=== PATIENT | male | born 1975 | race Two or more races ===

== ENCOUNTER 2017-11-28 23:03 | Emergency (ER) | payer BC, SELFPAY ==
[~2017-11-28] VITALS: Ht 177.8 cm; Wt 86.7 kg
[2017-11-28 23:08] VITALS: BP 134/82
== END 2017-11-29 00:36 | disposition home or self-care (01) ==
LOC: ED 23:30
DX: S50.12XA Contusion of left forearm, initial encounter (principal); M77.9 Enthesopathy, unspecified; G89.11 Acute pain due to trauma; X50.9XXA Other and unspecified overexertion or strenuous movements or postures, initial encounter; Y93.89 Activity, other specified; Y92.89 Other specified places as the place of occurrence of the external cause; Y99.0 Civilian activity done for income or pay
CPT/HCPCS: 29260; 99283